=== PATIENT | male | born 1955 | race Caucasian/White ===

== ENCOUNTER 2016-05-19 10:52 | Day surgery (SDC) | payer BC ==
[~2016-05-19] VITALS: Ht 175.3 cm; Wt 86.2 kg
[~2016-05-19 10:52] MED LIST: FLEXERIL10 MG PO; HYDROCHLOROTHIA25 MG PO; LORTAB 10-3251 EACH PO; PRILOSEC OTC20 MG PO; ZESTRIL40 MG PO
[2016-05-19] MEDS ORDERED: HYDROCHLOROTHIA25 MG PO (11:25)
[2016-05-19 11:30] VITALS: BP 160/90
[2016-05-19 12:18] LABS: ANION GAP 12 MEQ/L (2-14); CHLORIDE 99 MEQ/L (99-109); GFR ESTIMATE (CALCULATED) > 59 mL/min/; GLUCOSE 98 mg/dL (70-99); POTASSIUM 4.1 MEQ/L (3.7-5.4); SAMPLE HEMOLYSIS CHECK 0; SAMPLE ICTERIC CHECK 0; SAMPLE LIPEMIA CHECK 0; SODIUM 136 MEQ/L (136-147); UREA NITROGEN (BUN) 16 mg/dL (9-23)
[2016-05-19] MEDS ORDERED: NORCO 5/3251 TABLET PO (14:47)
[2016-05-19 15:10] VITALS: BP 153/89
[2016-05-19 16:24] VITALS: BP 154/83
== END 2016-05-19 16:26 | disposition home or self-care (01) ==
LOC: SDC 10:52
PROVIDERS: Surgery
PROC: 0YQ60ZZ Repair Left Inguinal Region, Open Approach (ICD-10-PCS; principal; 2016-05-19)
DX: K40.90 Unilateral inguinal hernia, without obstruction or gangrene, not specified as recurrent (principal); I10 Essential (primary) hypertension; M19.90 Unspecified osteoarthritis, unspecified site
CPT/HCPCS: 80048; C1781; J1100; J1885; J2250; J2405; J3010; S0020